=== PATIENT | male | born 1960 | race Caucasian/White ===

== ENCOUNTER 2020-09-08 13:56 | Inpatient (IN) ==
[~2020-09-08 13:56] MED LIST: *HR* Meperidine 25 MG/ML SYRINGE IVP PRN; Acetaminophen IV 1,000 MG/100 ML BAG IVPB ONE; Clindamycin 900 MG/50 ML 900 MG/50 ML IV.SOLN IVPB SCH; Ondansetron 4 MG/2 ML VIAL IVP PRN
[2020-09-08] MEDS ORDERED: Clindamycin 900 MG/50 ML 900 MG/50 ML IV.SOLN IVPB ONE (15:02)
[2020-09-08] MEDS ORDERED: Ringers Solution, Lactated 1,000 ML IVC SCH ×2 (15:15→21:37)
[2020-09-08] MEDS ORDERED: *HR* Propofol 200 MG/20 ML VIAL IVP ONE ×3 (16:04→16:26)
[2020-09-08] MEDS ORDERED: *HR* FentaNYL (PF) 100 MCG/2 ML VIAL ONE ×2 (16:04→16:21)
[2020-09-08] MEDS ORDERED: *HR* Midazolam HCl 2 MG/2 ML VIAL ONE ×2 (16:04→16:21)
[2020-09-08] MEDS ORDERED: Lidocaine -MPF 2% 2 ML VIAL ONE ×2 (16:06→16:32)
[2020-09-08] MEDS ORDERED: *HR* Rocuronium Bromide 50 MG/5 ML VIAL ONE (16:25)
[2020-09-08] MEDS ORDERED: *HR* Succinylcholine 200 MG/10 ML VIAL IVP ONE (16:25)
[2020-09-08] MEDS ORDERED: Dexamethasone 4 MG/ML VIAL ONE ×2 (16:26→17:04)
[2020-09-08] MEDS ORDERED: Ondansetron 4 MG/2 ML VIAL ONE ×2 (16:26→17:04)
[2020-09-08] MEDS ORDERED: Lidocaine -MPF 4% 5 ML AMPUL ONE (16:29)
[2020-09-08] MEDS ORDERED: Vancomycin 1,000 MG VIAL ONE (16:30)
[2020-09-08] MEDS ORDERED: ROPIVACAINE/PF/NS 0.25% 1 EACH SYRINGE INTRAART ONE (16:32)
[2020-09-08] MEDS ORDERED: Ropivacaine/PF 0.5% 30 ML VIAL ONE (16:32)
[2020-09-08] MEDS ORDERED: Ketorolac 30 MG/ML VIAL ONE (17:17)
[2020-09-08] MEDS ORDERED: Povidone-Iodine 45 ML, Sodium Chloride IRRigation 1,000 ML IR ONE (17:35)
[2020-09-08] MEDS ORDERED: Ethanol\\Acetic Acid\\Na Ace\\Ben 1,000 ML IRRIG.SOLN IR ONE (17:43)
[2020-09-08] MEDS ORDERED: *HR* Enoxaparin 30 MG/0.3 ML SYRINGE SQ SCH (18:00)
[2020-09-08] MEDS: *HR* HYDROmorphone PF 0.5 MG/0.5 ML SYRINGE IVP PRN ×2 (18:11→18:36)
[2020-09-08 18:41] LABS: Hematocrit 37.7 % (37.5-50.1); Hemoglobin 12.6 g/dL (12.9-16.9)
[2020-09-08] MEDS ORDERED: Sennosides 8.6 MG TABLET PO PRN (21:37)
[2020-09-08] MEDS ORDERED: MOM Conc 10 ML UD.LIQ PO PRN (21:37)
[2020-09-08] MEDS ORDERED: Dextrose Gel 15 GM/37.5 ML TUBE PO PRN ×2 (21:37)
[2020-09-08] MEDS ORDERED: D5% in Water 1,000 ML IVC PRN (21:37)
[2020-09-08] MEDS ORDERED: *HR* OxyCODONE Immed Rel 5 MG TABLET PO PRN (21:37)
[2020-09-08] MEDS ORDERED: Clindamycin 900 MG/50 ML 900 MG/50 ML IV.SOLN IVPB SCH (21:37)
[2020-09-08] MEDS ORDERED: Naloxone 0.4 MG/ML INJ IVP PRN (21:37)
[2020-09-08] MEDS ORDERED: Insulin LISPRO 300 UNITS/3 ML VIAL SUBQ SCH (21:37)
[2020-09-08] MEDS ORDERED: *HR* Dextrose 50 % in Water (Vial) 50 ML VIAL IVP PRN (21:37)
[2020-09-08] MEDS ORDERED: Ondansetron 4 MG/2 ML VIAL IVP PRN (21:37)
[2020-09-08] MEDS ORDERED: *HR* OxyCODONE/APAP 5/325 TABLET PO PRN (21:37)
[2020-09-08] MEDS: Insulin LISPRO 300 UNITS/3 ML VIAL SUBQ SCH (21:44)
[2020-09-09] MEDS: Clindamycin 900 MG/50 ML 900 MG/50 ML IV.SOLN IVPB SCH ×2 (00:48→08:04)
[2020-09-09] MEDS ORDERED: *HR* Enoxaparin 30 MG/0.3 ML SYRINGE SQ SCH (06:00)
[2020-09-09] MEDS: Insulin LISPRO 300 UNITS/3 ML VIAL SUBQ SCH ×2 (08:03→11:32)
[2020-09-09] MEDS ORDERED: Magnesium Oxide 400 MG TABLET PO SCH (09:00)
[2020-09-09] MEDS ORDERED: Fluticasone Propionate Nasal 50 MCG/SPRAY BOTTLE NS SCH (09:00)
[2020-09-09] MEDS ORDERED: Loratadine 10 MG TABLET PO SCH (09:00)
[2020-09-09 11:34] VITALS: BP 107/72
[2020-09-09 12:04] LABS: Hematocrit 36.8 % (37.5-50.1); Hemoglobin 12.5 g/dL (12.9-16.9)
[2020-09-09 12:24] LABS: BUN/Creatinine Ratio 25 (6-26); Blood Urea Nitrogen 22 mg/dL (8-23); Calcium 9.4 mg/dL (8.6-10.3); Carbon Dioxide 22 mEq/L (23-29); Chloride 102 mEq/L (98-107); Glucose 172 mg/dL (70-105); Osmolality,Calculated 283 (280-300); Sodium 133 mEq/L (136-145); eGFR For African Americans > 60 (> 60); eGFR For Non-African Americans > 60 (> 60)
== END 2020-09-09 12:17 | disposition home or self-care (01) | DRG 322 ==
LOC: SAMDAY 13:56 → 3NENU 15:03 → SAMDAY 09-09 12:17 → 3NENU 09-11 15:27
PROVIDERS: ADMIT Orthopaedic Surgery; ATTEND Orthopaedic Surgery